=== PATIENT | female | born 1935 | race Caucasian/White ===

== ENCOUNTER → 2018-03-15 | Outpatient (CLI) | payer MEDICARE ==
[~2018-03-15] MED LIST: ALBU1.252 IH; ALBU10PO BU; ALBU2.5V2 IH; AUD IH; CALC1TAB2 PO; CARB-38 PO; CARB15DR3 OU; CHOL200074 PO; CLON0.252 PO; DONE10TA36 PO; FLU15OS OS; FLUT16H NS; FURO20TA4 PO; GUAI600T50 PO; LORA5TAB9 PO; ROPI1TAB11 PO; ROSU20TA PO; ROSU20TA30 PO; TRAZ-185 PO; [UNRECOGNIZED DRUG - CODE] OU
== END | disposition home or self-care (01) ==
LOC: RAH 10:33
PROVIDERS: ATTEND Internal Medicine Endocrinology, Diabetes & Metabolism
DX: E04.2 Nontoxic multinodular goiter (principal); E04.9 Nontoxic goiter, unspecified
CPT/HCPCS: 76536

== ENCOUNTER → 2018-08-16 | Outpatient (CLI) | payer MEDICARE | END | disposition home or self-care (01) | LOC: RAH 11:17 | PROVIDERS: ATTEND Internal Medicine Endocrinology, Diabetes & Metabolism | DX: E04.2 Nontoxic multinodular goiter (principal) | CPT/HCPCS: 76536 ==

== ENCOUNTER → 2019-08-22 | Outpatient (CLI) | payer MEDICARE ==
[~2019-08-22] MED LIST changes: -ROSU20TA PO; +ROSU20TA23 PO; -ROSU20TA30 PO; +ROSU20TA31 PO
[2019-08-22 10:37] LABS: BASOPHILS % (AUTO) 0.4 % (0.0-5.0); EOSINOPHILS % (AUTO) 21.5 % (0.0-8.0); HEMATOCRIT 45.1 % (36-48); LYMPHOCYTES % (AUTO) 19.9 % (21.0-51.0); MEAN CORPUSCULAR VOLUME 93.9 fL (79-99); MONOCYTES % (AUTO) 6.4 % (3.0-13.0); NEUTROPHILS % (AUTO) 51.8 % (40.0-77.0); PLATELET COUNT (AUTO) 195 K/uL (130-400); RED CELL DISTRIBUTION WIDTH 14.4 % (11.0-15.5); WHITE BLOOD COUNT (AUTO) 7.5 K/uL (4.8-10.8)
[2019-08-22 11:11] LABS: ALBUMIN 3.5 g/dL (3.5-5.0); BILIRUBIN,DIRECT 0.1 mg/dL (0.0-0.3); BILIRUBIN,TOTAL 0.5 mg/dL (0.2-1.0); THYROID STIMULATING HORMONE 0.72 uIU/mL (0.36-3.74); TOTAL PROTEIN, SERUM 7.4 g/dL (6.0-8.3)
== END | disposition home or self-care (01) ==
LOC: RAH 09:51
PROVIDERS: ATTEND Internal Medicine Endocrinology, Diabetes & Metabolism
DX: E04.2 Nontoxic multinodular goiter (principal)
CPT/HCPCS: 36415; 76536; 80076; 84439; 84443; 84481; 85025